=== PATIENT | female | born 1950 | race Caucasian/White ===

== ENCOUNTER 2020-01-01 01:18 | Outpatient (CLI) | payer OTHER, SELFPAY ==
[2020-01-01 17:48] LABS: SARS-CoV-2 RNA PCR Negative
== END 2020-01-01 01:19 | disposition home or self-care (01) ==
LOC: ANHCOVIDDT 01:18
PROVIDERS: PCP Emergency Medicine; Visit Provider Internal Medicine Gastroenterology
DX: Z01.812 Encounter for preprocedural laboratory examination (principal); Z20.828 Contact with and (suspected) exposure to other viral communicable diseases
CPT/HCPCS: 87635; C9803; U0003

== ENCOUNTER 2020-01-04 02:18 | Day surgery (SDC) | payer OTHER, SELFPAY ==
[2019-12-28 10:18] VITALS: BMI 33.0
[2020-01-04 08:30] VITALS: BP 175/91; PULSE 84; RESP 16; TEMP 36.7; O2SAT 100; BMI 32.0
--- NOTE | 2020-01-04 08:48 | WPDGICN ---
Assessment and Plan Assessment and plan (1) Chronic GERD: Code(s): K21.9 - Gastro-esophageal reflux disease without esophagitis Status: Acute Assessment and Plan: Because of epigastric pain along with chronic GE reflux disease plan is for follow-up EGD at this time. Patient is to continue anti-reflux measures. Current dose of omeprazole 40 mg p.o. daily will be reassessed. (2) Epigastric abdominal pain: Code(s): R10.13 - Epigastric pain Status: Acute (3) History of colon polyps: Code(s): Z86.010 - Personal history of colonic polyps Status: Acute GI Consult Note Consult date/time: 01/04/20 08:48 HPI: Cristela Pack is a 69 year old female seen in evaluation at the request of Dr Ronald Davila. Patient complains of epigastric pain after eating. She stated it started with an episode of nausea vomiting diarrhea. She eventually was admitted to the hospital with dehydration. Currently she is presents for evaluation of EGD. She has a history of chronic GE reflux disease for at least 15 years. Current dose of omeprazole was increased to40mg p.o. daily recently. Patient denies any bleeding or weight loss. She also has a distant history of colon polyps most recent colonoscopy in 2019 revealed an adenoma. Her family history is noncontributory. Review of Systems Review of Systems: All systems reviewed & are unremarkable except as noted in HPI and below PMFSH Social History Social History Smoking status: Current some day smoker Tobacco type: cigarettes Substance use: never Substance use type: does not use Living arrangements: with family Gender identity (if verbalized by the patient): Female Sexual Orientation (if Verbalized by the Patient): Straight or Heterosexual Spiritual care concerns: No Meds Home Medications and Allergies Home Medications Medication Instructions Recorded Confirmed Type atorvastatin [Lipitor] 20 mg PO DAILY 12/28/19 12/28/19 History bupropion HCl [Wellbutrin XL] 300 mg PO DAILY 12/28/19 12/28/19 History cilostazol 100 mg PO BID 12/28/19 12/28/19 History lisinopril [Zestril] 30 mg PO DAILY 12/28/19 12/28/19 History omeprazole 40 mg PO DAILY 12/28/19 12/28/19 History Allergies Allergy/AdvReac Type Severity Reaction Status Date / Time No Known Allergies Allergy Verified 01/04/20 08:29 Vital Signs Vital Signs - 24 hr 01/04/20 08:30 Temperature 98.1 F Pulse Rate 84 Respiratory Rate 16 Blood Pressure 175/91 H Pulse Oximetry 100 Exam Narrative: Exam Narrative: Physical exam reveals patient to be alert. Vital signs stable. HEENT exam unremarkable. Lungs are clear to auscultation and percussion. Heart is without murmur or extra sounds. Abdominal exam bowel sounds are present soft nontender with no organomegaly.
[2020-01-04] MEDS: LACTATED RINGERS 1,000 ML 150 ML IV CONT (08:50)
--- NOTE | 2020-01-04 09:10 | P.PNAN_ITS ---
Anes - Initial Pre Proc Eval Procedure: Operation Date: 01/04/20 09:30 Proposed Procedures p Esophagogastroduodenoscopy - Zan Gao MD Date/Time: 01/04/20 09:10 Surgeon: Zan Gao MD Pre Op Diagnosis: Epigastric Pain, GERD Patient Data Age: 69 Gender: F Height: 5 ft 2 in Weight: 79.5 kg Last Vital Signs Temp 98.1 F 01/04/20 08:30 Pulse 84 01/04/20 08:30 Resp 16 01/04/20 08:30 BP 175/91 H 01/04/20 08:30 Pulse Ox 100 01/04/20 08:30 Allergies Allergy/AdvReac Type Severity Reaction Status Date / Time No Known Allergies Allergy Verified 01/04/20 08:29 Home Medications Medication Instructions Recorded Confirmed Type atorvastatin [Lipitor] 20 mg PO DAILY 12/28/19 12/28/19 History bupropion HCl [Wellbutrin XL] 300 mg PO DAILY 12/28/19 12/28/19 History cilostazol 100 mg PO BID 12/28/19 12/28/19 History lisinopril [Zestril] 30 mg PO DAILY 12/28/19 12/28/19 History omeprazole 40 mg PO DAILY 12/28/19 12/28/19 History Patient hx anesthesia problems: none Family hx anesthesia problems: none [facility] Past Medical History Medical History (Updated 01/04/20 @ 09:09 by Tom Brown MD) Chronic GERD Hyperlipidemia Hypertension Social History Social History Smoking status: Current some day smoker Tobacco type: cigarettes Substance use: never Substance use type: does not use Living arrangements: with family Gender identity (if verbalized by the patient): Female Sexual Orientation (if Verbalized by the Patient): Straight or Heterosexual Spiritual care concerns: No Anes - Eval Final PreProcedure Day of Procedure 01/04/20 09:10 Patient weight: overweight Heart: regular rate and rhythm Lungs: clear to auscultation Airway: Mallampati scale class II Neurological: alert and oriented Last oral intake: >/= 8 hours ASA classification: II Emergent: no Anesthetic plan: proceed Anesthesia type and monitoring: general GIVS and standard monitoring Informed Consent: The patient's anesthetic plan and its attendant risks and benefits were discussed with the patient/family/POA. Questions were solicited and answers provided to the satisfaction of the patient/family/POA.
[2020-01-04] MEDS: BENZOCAINE (*SP) 60 ML SPRAY CAN (HURRICAINE) 1 SPRAY MUCOUS MEM (09:35)
[2020-01-04 09:41] VITALS: BP 135/91; PULSE 82; RESP 16; O2SAT 100
[2020-01-04 09:51] VITALS: BP 154/84; PULSE 84; RESP 18; O2SAT 100
[2020-01-04 10:01] VITALS: BP 152/85; PULSE 75; RESP 18; O2SAT 99
== END 2020-01-04 10:25 | disposition home or self-care (01) ==
PROVIDERS: PCP Emergency Medicine; Visit Provider Internal Medicine Gastroenterology
PROC: 0DJ08ZZ Inspection of Upper Intestinal Tract, Via Natural or Artificial Opening Endoscopic (ICD-10-PCS; CPT 43235; principal; 2020-01-04 09:30)
DX: K21.9 Gastro-esophageal reflux disease without esophagitis (principal); R10.13 Epigastric pain; Z86.010 Personal history of colon polyps; F17.210 Nicotine dependence, cigarettes, uncomplicated
CPT/HCPCS: 43239; 87081; J2704; J7120